=== PATIENT | female | born 2000 | race Asian ===

== ENCOUNTER 2021-01-01 23:57 | Emergency (ER) | payer BC, SELFPAY ==
[2021-01-02 00:06] VITALS: BP 108/72; BP 117/77; PULSE 124; PULSE 79; RESP 16; TEMP 36.4; O2SAT 100; O2SAT 98; BMI 26.9
--- NOTE | 2021-01-02 00:21 | PC.NURSE ---
pt is passed due to ETOH intoxicated. Pt is responsive to sterum stimulation. pt is placed on monitor for observation. medicated per emar
[2021-01-02] MEDS: ondansetron HCL 4 MG/2 ML VIAL IVPUSH (00:31)
[2021-01-02] MEDS: 0.9 % Sodium Chloride 1,000 ML 999 ML IV (00:32)
--- NOTE | 2021-01-02 00:38 | ED_ITS ---
HPI - Alcohol General Chief Complaint: ETOH/Substance Use Stated Complaint: ETOH Time Seen by Provider: 01/02/21 00:31 Source: patient and EMS Mode of arrival: EMS Limitations: altered mental status History of Present Illness HPI narrative: For alcohol intoxication. Since the patient was parting in the [place], drinking vodka, seems that she went missing and somebody called EMS. Patient is unable to give any history, she is too intoxicated. Patient has vomited multiple times Related Data Allergies Allergy/AdvReac Type Severity Reaction Status Date / Time Unable to Assess Allergy Verified 01/02/21 00:45 Review of Systems Review of Systems: Yes Other (Very intoxicated) [facility] Past Medical History Medical History Alcohol abuse Social History Social History Alcohol intake: current Alcohol intake frequency: holidays/special occasions only Patient Tobacco Use Status: Never used Tobacco Use of substances other than those prescribed or required for medical reasons: No Advance Directives: No Advance Directives Information Provided: Yes Physical Exam Vital Signs: Vital Signs: Last Vital Signs Temp 97.6 F 01/02/21 00:06 Pulse 79 01/02/21 00:06 Resp 16 01/02/21 03:25 BP 117/77 01/02/21 00:06 Pulse Ox 99 01/02/21 03:25 Body Mass Index 26.9 Const: Other: Appearance: Somnolent, wakes up easily. Intoxicated Eyes: Pupils equal, round and reactive to light. ENT: Pharynx normal. Neck: Normal inspection. Neck supple. No lymph nodes noted. No crepitus CVS: Normal heart rate and rhythm. Pulses normal. Normal S1 and S2 Respiratory: No respiratory distress. Breath sounds normal. No Wheezing. No rales Abdomen: Soft and nontender. No rigidity. No distention. Skin: Skin warm and dry. Superficial scratches to the right side of the neck Extremities: No lower extremity edema. No lower extremity edema. No Lacerations. No Rash Neuro: Cranial nerves 2-12 grossly intact, moving all extremities Course Course Course Narrative: Patient was given fluids and Zofran. Metabolized to freedom, physician observation started at 00:44 Patient is awake and alert x3, patient is walking unassisted, has a sober ride. Physician ulceration. Physician of starvation stopped at 06:24 Discharge Plan Discharge Clinical Impression: Alcohol abuse Patient Disposition: Home, Self-Care Instructions: Abuse of Alcohol (ED) Additional Instructions: Please follow-up with your primary care physician tomorrow. If you have any worsening or new symptoms, please return to the emergency room or call 911
[2021-01-02 03:25] VITALS: PULSE 79; RESP 16; O2SAT 99
--- NOTE | 2021-01-02 03:28 | PC.NURSE ---
pt is sleeping at this time with no distress.
[2021-01-02 06:27] VITALS: RESP 16
--- NOTE | 2021-01-02 06:27 | PC.NURSE ---
pt a&O, denies any sob or chest pain. no has no n/v at this time. pt able to tolerated fluids. Pt given public safety number from her school who will provide a safe ride home.
== END 2021-01-02 06:44 | disposition home or self-care (01) ==
LOC: HO.ED 01-02 04:22
PROVIDERS: Emergency Provider Emergency Medicine
DX: F10.129 Alcohol abuse with intoxication, unspecified (principal); Y90.9 Presence of alcohol in blood, level not specified
CPT/HCPCS: 96365; 96375; 99284; 99285; J2405